=== PATIENT | male | born 1955 | race Caucasian/White ===

== ENCOUNTER 2023-05-26 11:24 | Day surgery (SDC) | payer MEDICARE, OTHER, SELFPAY ==
[2023-05-17 08:36] VITALS: BMI 26.3
[2023-05-26] VITALS (9 sets, daily range): BP systolic 103–140; BP diastolic 71–82
[2023-05-26] MEDS: NSS 500 IV (12:06)
--- NOTE | 2023-05-26 16:28 | ITS.CL.PACE ---
[employer] - Pacemaker Implant
Pacemaker Implant
Procedure Report:
Date of Procedure: May 26, 2023
Patient : 1955
Procedure: Pacemaker Implantation.
Indication: Generator at MIGUEL
Implants:
Pulse Generator: Medtronic; Model# W1 DR 01; SN: [id number] implanted today
RA Lead: Medtronic; Model# 5086 MRI; SN: [id number] implanted 2012
RV Lead: Medtronic; Model# 5086 MRI; SN: [id number] implanted 2012
Explanted generator:
Medtronic product #[id number] serial number [id number]
Technique: A time out was performed. The procedure site was identified. The patient was anesthetized by the anesthesia service. Preoperative sedation was administered. The patient was prepped and draped in the usual fashion. Local anesthetic was
applied to the left prepectoral subcutaneous tissue. A 3 inch incision was made 2.5 inches below the left clavicle. A subcutaneous pocket was created with blunt and sharp dissection and hemostasis controlled with Bovie cautery. The chronic leads
were removed from the chronic generator and the chronic generator was removed from the field. The chronic leads were connected to the new generator. Stable lead parameters were noted and we proceeded with closing. 10 volt pacing did not capture
the diaphragm. The leads were secured to the pectoralis muscle and fascia. The leads were appropriately attached to the device. The pocket was irrigated with antibiotic solution. The device and leads were placed in the pocket. The incision was
closed in three layers with absorbable suture. The estimated blood loss was minimal. There were no complications.
Lead Analysis:
RA lead: P: 1.3 mV; Threshold: 0.75 V @ 0.5 ms; Impedance: 530 ohms.
RV lead: R: 6.6 mV; Threshold: 2.0 V @ 0.5 ms; Impedance: 390 ohms.
Final Programming: AAIR�DDDR 60-130 beats a minute
Conclusion: Uncomplicated Medtronic pacemaker implant.
Recommendation: Routine post pacemaker care.
== END 2023-05-26 15:22 | disposition home or self-care (01) ==
LOC: CATH 11:24
PROVIDERS: ATTENDING PHYSICIAN Internal Medicine Cardiovascular Disease; FAMILY PHYSICIAN Nurse Practitioner Adult Health; OTHER PHYSICIAN Internal Medicine
DX: Z45.010 Encounter for checking and testing of cardiac pacemaker pulse generator [battery] (principal); I44.1 Atrioventricular block, second degree; I47.10 Supraventricular tachycardia, unspecified; I10 Essential (primary) hypertension; E78.5 Hyperlipidemia, unspecified; K21.9 Gastro-esophageal reflux disease without esophagitis; Z87.891 Personal history of nicotine dependence
CPT/HCPCS: 33228; C1785

== ENCOUNTER → 2024-01-18 08:29 | Outpatient (REF) | payer MEDICARE, OTHER, SELFPAY ==
[2024-01-18 09:59] LABS: % Basophils 1.1 % (0-2); % Eosinophils 2.8 % (0-6); % Immature Granulocytes 0.1 % (0-0.5); % Lymphocytes 26.7 % (20.5-51.1); % Monocytes 12.1 % (1.7-9.3); % Neutrophils 57.2 % (42.2-75.2); Absolute Basophils 0.1 10^3/uL (0-0.2); Absolute Eosinophils 0.2 10^3/uL (0-0.7); Absolute Lymphocytes 1.9 10^3/uL (1.2-3.4); Absolute Monocytes 0.9 10^3/uL (0.1-0.6); Absolute Neutrophils 4.1 10^3/uL (1.4-6.5); Hematocrit 41.5 % (39.0-52.0); Hemoglobin 14.4 g/dL (13.0-18.0); Mean Corp Hgb Conc. 34.7 g/dL (33.0-37.0); Mean Corpuscular Hgb 32.1 pg (27.0-31.0); Mean Corpuscular Volume 92.6 fL (80.0-94.0); Mean Platelet Volume 11.8 fL (7.4-10.4); Nucleated Red Blood Cells % 0 % (-); Platelet Count 236 10^3/uL (130-400); Red Blood Cell Count 4.48 10^6/uL (4.70-6.10); Red Cell Dist. Width 12.9 % (11.5-14.5); White Blood Cell Count 7.1 10^3/uL (4.8-10.8)
[2024-01-18 10:50] LABS: ALT (SGPT) 30 U/L (0-50); AST (SGOT) 24 U/L (17-59); Albumin 4.4 g/dl (3.5-5.0); Alkaline Phosphatase 58 U/L (38-126); Blood Urea Nitrogen 28 mg/dl (9-20); Calcium 9.9 mg/dl (8.4-10.2); Carbon Dioxide 23 mmol/L (22-30); Chloride 106 mmol/L (98-107); Glucose 97 mg/dl (70-99); HDL Cholesterol 44 mg/dl; Iron 141 ug/dl (49-181); LDL Cholesterol, Calculated 117 mg/dl; Potassium 4.5 mmol/L (3.5-5.1); Sodium 142 mmol/L (135-145); Total Bilirubin 0.8 mg/dl (0.2-1.3); Total Cholesterol 187 mg/dl (50-199); Total Protein 6.9 g/dl (6.3-8.2); Triglyceride 131 mg/dl (10-149); Very Low Density Lipoprotein 26 mg/dl (0-30); eGFR 59.84
[2024-01-18 10:59] LABS: Percent Saturation 39 % (20-50); Total Iron Binding Capacity 354 ug/dl (261-462)
[2024-01-18 11:25] LABS: TSH Reflex To Free T4 1.24 uIU/ml (0.47-4.68)
[2024-01-18 11:28] LABS: Ferritin 16.7 ng/ml (17.9-464.0)
== END ==
LOC: HWLAB 08:29
PROVIDERS: ATTENDING PHYSICIAN Nurse Practitioner Adult Health
DX: K90.0 Celiac disease (principal); Z00.00 Encounter for general adult medical examination without abnormal findings; E78.2 Mixed hyperlipidemia; E78.5 Hyperlipidemia, unspecified; I10 Essential (primary) hypertension; E66.3 Overweight; D50.9 Iron deficiency anemia, unspecified
CPT/HCPCS: 36415; 80053; 80061; 82728; 83540; 83550; 84443; 85025

== ENCOUNTER → 2024-03-25 11:47 | Outpatient (REF) | payer MEDICARE, OTHER, SELFPAY ==
[2024-03-25 17:43] LABS: PSA, Total - Screen 1.57 ng/ml (0.0-4.0)
== END ==
LOC: HWLAB 11:47
PROVIDERS: ATTENDING PHYSICIAN Nurse Practitioner Adult Health
DX: Z12.5 Encounter for screening for malignant neoplasm of prostate (principal)
CPT/HCPCS: 36415; G0103

== ENCOUNTER → 2025-02-04 09:06 | Outpatient (REF) | payer MEDICARE, OTHER, SELFPAY ==
[2025-02-04 10:14] LABS: Hematocrit 41.6 % (39.0-52.0); Hemoglobin 14.0 g/dL (13.0-18.0); Mean Corp Hgb Conc. 33.7 g/dL (33.0-37.0); Mean Corpuscular Volume 93.1 fL (80.0-94.0); Nucleated Red Blood Cells % 0 % (-); Platelet Count 253 10^3/uL (130-400); Red Cell Dist. Width 13.2 % (11.5-14.5)
[2025-02-04 10:51] LABS: ALT (SGPT) 37 U/L (0-50); AST (SGOT) 26 U/L (17-59); Albumin 4.4 g/dl (3.5-5.0); Alkaline Phosphatase 60 U/L (38-126); Blood Urea Nitrogen 21 mg/dl (9-20); Calcium 9.4 mg/dl (8.4-10.2); Carbon Dioxide 23 mmol/L (22-30); Chloride 111 mmol/L (98-107); Glucose 110 mg/dl (70-99); HDL Cholesterol 49 mg/dl; LDL Cholesterol, Calculated 107 mg/dl; Potassium 4.5 mmol/L (3.5-5.1); Sodium 142 mmol/L (135-145); Total Protein 7.1 g/dl (6.3-8.2); Very Low Density Lipoprotein 23 mg/dl (0-30); eGFR > 60.00
[2025-02-04 10:57] LABS: Glycohemoglobin (HgbA1c) 5.9 % (4.0-5.6)
== END ==
LOC: HWLAB 09:06
PROVIDERS: ATTENDING PHYSICIAN Family Medicine
DX: I10 Essential (primary) hypertension (principal); E78.2 Mixed hyperlipidemia; R73.9 Hyperglycemia, unspecified; K21.9 Gastro-esophageal reflux disease without esophagitis
CPT/HCPCS: 36415; 80053; 80061; 83036; 84443; 85025

== ENCOUNTER → 2025-04-08 10:53 | Outpatient (REF) | payer MEDICARE, OTHER, SELFPAY ==
[2025-04-08 12:27] LABS: Iron 124 ug/dl (49-181)
[2025-04-08 13:09] LABS: PSA, Total - Screen 1.49 ng/ml (0.0-4.0)
[2025-04-08 13:14] LABS: Ferritin 12.9 ng/ml (17.9-464.0)
== END ==
LOC: REG 10:53
PROVIDERS: ATTENDING PHYSICIAN Family Medicine
DX: Z12.5 Encounter for screening for malignant neoplasm of prostate (principal); K22.719 Barrett's esophagus with dysplasia, unspecified; K90.0 Celiac disease; R79.0 Abnormal level of blood mineral
CPT/HCPCS: 36415; 82728; 83540; G0103